=== PATIENT | male | born 1975 | race Caucasian/White ===

== ENCOUNTER 2024-06-21 06:28 | Day surgery (SDC) | payer OTHER, SELFPAY | END 2024-06-21 14:34 | disposition home or self-care (01) | LOC: GI 06:28 | PROVIDERS: ATTENDING PHYSICIAN Internal Medicine | DX: Z12.11 Encounter for screening for malignant neoplasm of colon (principal); K57.30 Diverticulosis of large intestine without perforation or abscess without bleeding; K64.8 Other hemorrhoids; K55.20 Angiodysplasia of colon without hemorrhage; D12.3 Benign neoplasm of transverse colon; D12.5 Benign neoplasm of sigmoid colon; K63.5 Polyp of colon; K62.1 Rectal polyp | CPT/HCPCS: 45385; 45380; 88305 ==

== ENCOUNTER 2024-06-22 21:13 | Inpatient (IN) | payer OTHER, SELFPAY ==
[2024-06-22 17:40] VITALS: BP 167/110
[2024-06-22 17:54] LABS: % Basophils 0.7 % (0-2); % Eosinophils 2.7 % (0-6); % Immature Granulocytes 0.5 % (0-0.5); % Lymphocytes 33.3 % (20.5-51.1); % Monocytes 9.9 % (1.7-9.3); % Neutrophils 52.9 % (42.2-75.2); Absolute Eosinophils 0.2 10^3/uL (0-0.7); Absolute Lymphocytes 1.9 10^3/uL (1.2-3.4); Absolute Monocytes 0.6 10^3/uL (0.1-0.6); Absolute Neutrophils 3.1 10^3/uL (1.4-6.5); Hematocrit 39.2 % (39.0-52.0); Hemoglobin 13.7 g/dL (13.0-18.0); Mean Corp Hgb Conc. 34.9 g/dL (33.0-37.0); Mean Corpuscular Hgb 30.6 pg (27.0-31.0); Mean Corpuscular Volume 87.5 fL (80.0-94.0); Mean Platelet Volume 9.3 fL (7.4-10.4); Nucleated Red Blood Cells % 0 % (-); Platelet Count 300 10^3/uL (130-400); Red Blood Cell Count 4.48 10^6/uL (4.70-6.10); Red Cell Dist. Width 12.9 % (11.5-14.5); White Blood Cell Count 5.8 10^3/uL (4.8-10.8)
[2024-06-22 18:10] LABS: ALT (SGPT) 23 U/L (0-50); AST (SGOT) 27 U/L (17-59); Albumin 4.9 g/dl (3.5-5.0); Alkaline Phosphatase 64 U/L (38-126); Blood Urea Nitrogen 12 mg/dl (9-20); Calcium 9.3 mg/dl (8.4-10.2); Carbon Dioxide 22 mmol/L (22-30); Chloride 103 mmol/L (98-107); Glucose 104 mg/dl (70-99); Potassium 3.9 mmol/L (3.5-5.1); Sodium 138 mmol/L (135-145); Total Bilirubin 0.5 mg/dl (0.2-1.3); Total Protein 7.6 g/dl (6.3-8.2); eGFR > 60.00
--- NOTE | 2024-06-22 19:15 | ED.GENMED ---
History of Present Illness
General
Chief Complaint: Rectal Bleeding
Source: patient
Exam Limitations: none
Time Seen by Provider: 06/22/24 19:08
History of Present Illness
History of Present Illness:
See MDM
Past History
Past History
ED Past Medical History: None
ED Past Surgical History: None
Social History
Tobacco: Non-smoker
Alcohol: None
Phy Exam
Physical Exam
Physical Exam:
See MDM
Course
Orders/Labs/Results
Orders:
Orders
06/22/24 17:48
Complete Blood Count/With Diff Urgent
Comprehensive Metabolic Panel Urgent
06/22/24 19:50
Tranexamic Acid 1000 mg/100 ml [Tranexamic Acid] 1,000 mg in 100 ml IV ONCE
06/22/24 19:55
Type+Screen Urgent
Consult Gastroenterology [GASTROINTESTINAL CONSULT] Routine
Consulting Provider: Rhina Guy
Was physician already notified: Yes
0.9% Sodium Chloride 1000 ml [Nss] 1,000 ml IV BOLUS
Abnormal Lab Results
06/22/24
17:48
RBC 4.48 L 10^6/uL
(4.70-6.10)
Monocytes % 9.9 H %
(1.7-9.3)
Glucose 104 H mg/dl
(70-99)
06/22/24 17:48
06/22/24 17:48
Vital Signs
Initial and Last Documented VS:
Initial Vital Signs
Temp Pulse Resp BP Pulse Ox
98.6 F 101 16 167/110 98
06/22/24 17:40 06/22/24 17:40 06/22/24 17:40 06/22/24 17:40 06/22/24 17:40
Last Documented Vital Signs
Temp Pulse Resp BP Pulse Ox
98.6 F 101 16 167/110 98
06/22/24 17:40 06/22/24 17:40 06/22/24 17:40 06/22/24 17:40 06/22/24 17:40
MDM/Problems Addressed
Differential Diagnosis Includes:
HPI and MDM Narrative:
49-year-old male presenting for evaluation of rectal bleeding. Patient had a colonoscopy yesterday. He states about 8 polyps removed. He states 2 of the polyps were about 25 mm requiring delisa after removal. After the procedure, patient had 3
episodes of bright red rectal bleeding. When he woke up, he continued to have rectal bleeding but with large clots. He had about 8 episodes of rectal bleeding today. He denies any passage of stool but that is expected since he just finished a
bowel prep. He denies any significant past medical history and denies being on blood thinners. On exam, abdomen is soft and nontender. Hemoglobin stable. Will discuss case with GI
Physical exam
General: Well appearing and non-toxic
HEENT: protecting airway
Neck: appears supple
CV: No evidence of cyanosis
Resp: No accessory muscle use
Abd: Non-distended. Soft and nontender
Extremities: No deformities
Neuro: alert
Psych: Normal affect
Skin: Intact
Problems Addressed including Acute and Chronic Conditions affecting care:
1. Post polypectomy rectal bleeding
Acuity: acute
Prognosis: stable
Details: Hemoglobin stable. Patient not on blood thinners. Will discuss case with GI
Updates
Given the multiple episodes of rectal bleeding, case discussed with GI. Will start TXA and admit for hemoglobin trending and evaluation
Differential Diagnosis (but not limited to): Polypectomy bleed, diverticulosis
Testing considered: CT abdomen/pelvis but he has no abdominal pain
Drug therapy (if applicable): OTC meds, please see d/c instruction regarding Rx drugs
Amount and/or Complexity of Data Reviewed
Clinical info obtained from: Patient
External data reviewed: N/A
Labs I independently reviewed (but not limited to): Hemoglobin stable
Radiology: N/A
Pulse Ox: not hypoxic
EKG independently reviewed: N/A
Door Closer: N/A
Critical Care: N/A
Risk of Complication:
Social Determinants of health: Good social support
Discussed with other providers: Gastroenterology, hospitalist
Escalation of Care includes Admit/Obs: Given persistent rectal bleeding, will admit for hemoglobin trending
Occasional wrong word or 'sound a like' substitutions may have occurred due to the inherent limitations of voice recognition software. Read the chart carefully and recognize, using context, where substitutions have occurred.
*Critical Care Note
Total Time (30-74mins, 75-104mins- exclusive of procedures): Not Applicable
ED Attending Note
-
Portions of this chart may have been created with voice recognition software.� Occasional wrong word or��sound alike� substitutions may have occurred due to the inherent limitations of voice recognition software.
Discharge Plan
Departure
Patient Disposition: Admit
Date of Disposition: 06/22/24
Time of Disposition: 19:58
Admit to: Med/Surg
Presentation/result/management discussed w/ accepting MD/DO: Hospitalist
Discharge Problem:
Bright red rectal bleeding
Referrals:
Bobbi Joe CRNP [Family Provider] -
Interventions
Interventions:
*Risk Screen - Suicide Last Done: 06/22/24 17:40
*Neglect/Abuse Screening Last Done: 06/22/24 17:40
Discharge Date and Time
Print Language: BURUNDIAN
[2024-06-22] MEDS: TRANEXAMIC ACID 100 IV (20:14)
[2024-06-22] MEDS: NSS 1000 IV (20:15)
[2024-06-22 20:18] VITALS: BP 146/101
--- NOTE | 2024-06-22 20:19 | HPS.HSE ---
Family Physician
-
Family Physician: SIRISHA Camejo
Chief Complaint
-
Rectal bleeding
History of Present Illness
This is a 49-year-old male who has no known segment past medical history except for hypertension presents to the emergency department with rectal bleeding 1 day after status post colonoscopy with multiple large polyp resections.
Patient denies any history of NSAID use. He denies any thinners. Is status post procedure around 2 PM yesterday. Since then he has been passing clots. Reported he did have dinner and breakfast. He had multiple episodes of bloody bowel movements
today. He shows multiple episodes of passing clots and commode. He has had 3 episodes of rectal bleeding last night and 8 episodes today with large clots. He is not having any stool. He denies feeling dizzy or lightheaded. He denies having any
chest pain. He denies any shortness of breath. He denies any syncopal episode. He reports mild left upper quadrant abdominal discomfort.
In the emergency department he was afebrile, blood pressure was 160/110 with a pulse of 101, he was satting 98% on room air.
Hemoglobin was 13.7 with normal platelet count. Electrolytes BUN/creatinine were all in the normal range.
ED consulted Dr. Guy who is aware.
Tranexamic acid given.
Medical History
Past Medical History
Past Medical History: Reports HTN
Past Surgical History: Reports None
Social History
Tobacco: Non-smoker
Alcohol: Occasional
Drug: None
Living: With Family
Employment: Employed
Family History
Family History: Early CAD (father with CAD)
Allergies / Home Medications
Allergies reflects when Allergies were last updated in [employer].
Home Medications with original date entered in [employer]
Allergy/Medication List:
Allergies
Allergy/AdvReac Type Severity Reaction Status Date / Time
No Known Allergies Allergy Verified 06/22/24 17:44
Home Medications
lisinopril 20 mg tablet 20 mg PO DAILY 06/22/24
Review of Systems
-
History Source: Patient
Constitutional: Reports No Symptoms
EENT: Reports No Symptoms
Respiratory: Reports No Symptoms
Cardiac: Reports No Symptoms
Abdomen/GI: Reports Bloody Stools
: Reports No Symptoms
Musculoskeletal: Reports No Symptoms
Skin: Reports No Symptoms
Neurological: Reports No Symptoms
Endocrine: Reports No Symptoms
Hematologic/Lymphatic: Reports No Symptoms
Psych: Reports No Symptoms
Physical Exam
Vital Signs
Vital Signs
Temp Pulse Resp BP Pulse Ox
98.6 F 101 16 167/110 98
06/22/24 17:40 06/22/24 17:40 06/22/24 17:40 06/22/24 17:40 06/22/24 17:40
Physical Exam
General: Well Developed, Well Nourished, No Apparent Distress and Comfortable
HEENT: NormoCephalic, Anicteric, Moist mucous membranes and Atraumatic
Respiratory: Clear
Cardiac: S1/S2 and Regular Rhythm
Breast: Deferred by me
GI: Soft, Non Tender, Non Distended and Normal Bowel Sounds
Rectal: Red
Genito-urinary: Deferred by me
Musculoskeletal: No Clubbing, No Cyanosis and No Edema
Skin: Warm
Neuro: AO x 3 and Nonfocal/grossly intact
Hematologic/Lymphatic: No Lymphadenopathy
Psych: Calm
Laboratory Results
-
06/22/24 17:48
06/22/24 17:48
Laboratory Results
Total Bilirubin 0.5 mg/dl (0.2-1.3) 06/22/24 17:48
AST 27 U/L (17-59) 06/22/24 17:48
ALT 23 U/L (0-50) 06/22/24 17:48
Alkaline Phosphatase 64 U/L (38-126) 06/22/24 17:48
Data Reviewed
-
Lab Data: Labs Reviewed by me
Old Records: Reviewed
Impression/Plan
-
IMPRESSION:
49 y.o male POD 1 s/p colonoscopy with resection of 8 polyps with 2 large ones requiring delisa comes in with BRBPR and passing clots since the procedure. Hgb is still stable so far. Hemodynamically remains stable with SBP 167. hgb 13.7 (no
priors).
PLAN:
Rectal bleeding 2/2 polyp resection - HD stable, Hgb stable. Still passing clots x 24 hours. No thinners. No other known risk factors.
- admit to telemetry
- NPO for now except sips and ice chips
- type and screen and consented
- GI aware and consulted
- given TXA in ED
- H&H q 6 hours for now
- holding lisinopril
- if significant drop or HD compromise will obtain CT GI bleeding protocol
DVT PPX- SCDs
Code status - Full Code
[2024-06-22 21:03] VITALS: BMI 26.2
[2024-06-22 22:00] VITALS: BP 146/92
[2024-06-22 22:33] VITALS: BP 129/95; BP 134/82; BP 136/83; PULSE 105; PULSE 61; PULSE 72; BMI 25.3
[2024-06-22] MEDS: D5/0.45%NACL 1000 IV (22:49)
--- NOTE | 2024-06-22 22:50 | PTCARENOTE ---
Received pt. from ED via stretcher and pt. able to walk to room bed with steady gait. Denies dizziness while standing, denies pain, no nausea, even and unlabored breathing on RA, and VSS. Oriented pt. to room and hospital policies, discussed plan of
care and what to expect, and addressed questions/concerns at time of assessment. Bed locked and in lowest position, side rails in place, call light within reach.
[2024-06-23] VITALS (13 sets, daily range): BP systolic 15–169; BP diastolic 68–113; PULSE 53–113
[2024-06-23 00:08] LABS: Hematocrit 31.1 % (39.0-52.0); Hemoglobin 10.8 g/dL (13.0-18.0)
[2024-06-23 04:23] LABS: Hemoglobin 9.9 g/dL (13.0-18.0)
[2024-06-23 04:28] LABS: PT 14.7 Sec (11.4-14.6)
[2024-06-23 04:44] LABS: Blood Urea Nitrogen 13 mg/dl (9-20); Calcium 8.4 mg/dl (8.4-10.2); Carbon Dioxide 24 mmol/L (22-30); Chloride 106 mmol/L (98-107); Estimated Creatinine Clearance 120 ml/min; Glucose 118 mg/dl (70-99); Potassium 4.1 mmol/L (3.5-5.1); Sodium 136 mmol/L (135-145); eGFR > 60.00
--- NOTE | 2024-06-23 08:12 | CON.GI ---
Addendum entered and electronically signed by Rhina Arreola Do, MD 06/23/24 12:17:
I saw and examined the patient.
The VICE PRESIDENT AND PORTFOLIO MANAGER's note was reviewed and I agree with the note.
Comment: Demarcus is a 49yo M with h/o HTN who had recent screening colonoscopy 06/21 with 8 polyps requiring complex polypectomies and cecal AVM. Yesterday with several episodes of hematochezia. Hbg from 13 to 9.9. Received TXA in ER. Vitals stable
abdomen soft, NTTP, NABS. Mentating. Prior [facility] records reviewed
Suspect post polypectomy bleeding. Colonoscopy today after rapid prep with copious maroon and black clots. Unable to visualize. Pt hospitalist updated. Transfer him from GI lab to radiology for urgent CTA. Hopefully embolization if site found
clips should be near those areas. C/w NPO. Will follow with you
Original Note:
Consultation
-
Date/Time Consultation Requested: 06/22/241954
Date/Time Consultation Performed: 06/23/24 0750
Requesting Provider: Dr. Martinez
Performing Provider: Dr. Guy/SIRISHA Gudino
Reason for Consultation: rectal bleeding
Medical History
Chief Complaint / HPI
Chief Complaint: rectal bleeding
History of Present Illness:
49-year-old male with past history of hypertension and colon polyps who had colonoscopy on 06/21/2024 presents to the emergency room with bright red blood per rectum. Asked to evaluate for the same. Patient had colonoscopy performed on 06/21/2024.
The patient had 8 polyps removed he also was found to have a cecal AVM that was nonbleeding. The patient went home and approximately 6 hours later he had an episode of bright red blood per rectum in the toilet. Later in the evening he had another
episode this 1 was mixed with some sediment of stool. He had a third episode in the middle of the night that was complete clot. At that point he came to the emergency room for further evaluation. We are asked to evaluate for the same. He then
started passing multiple episodes of blood every hour. He never had any abdominal pain just urgency to have a bowel movement which was blood per rectum. He was given TXA in the emergency room. Since that time he only passed 1 small clot per
rectum. He is passing flatus. Otherwise he denies any fevers, chills, nausea, vomiting, melena, dysphagia or dyne aphasia. No early satiety or unintentional weight loss. He does not smoke. He drinks on the weekends. Sometimes he states he can
range anywhere from 2 beers to 12 beers. His only medication is lisinopril. He does not take any aspirin or NSAIDs. He does not have any known coagulation disorders. His only surgery was wisdom tooth extraction. Hemoglobin on presentation was
13.7. This morning it is 9.9. Platelets 300. Patient denies any chest pain, shortness of breath, dizziness or diaphoresis. PT 14.7 this morning, INR was 1.10. Patient had no imaging.
Past Medical History
Past Medical History: HTN and Other (8 colon polyps, nonbleeding cecal AVM)
Past Surgical History: Other ([place] teeth extraction)
Social History
Tobacco: Non-Smoker
Alcohol: Occasional (Drinks on weekends 2-12 beers)
Drug: None
Living: With Family
Employment: Employed
Family History
Family History: Other (No family history of gastrointestinal malignancy or IBD)
Allergies / Home Medications
Allergy/AdvReac Type Severity Reaction Status Date / Time
No Known Allergies Allergy Verified 06/22/24 17:44
�Medication �Instructions �Recorded
lisinopril 20 mg tablet 20 mg PO DAILY Blood Pressure 06/22/24
Review of Systems
-
All other systems: A 12 pt ROS was Negative except as stated above in HPI
Vital Signs
Temp Pulse Resp BP Pulse Ox
98.2 F 57 16 109/68 98
06/23/24 03:11 06/23/24 04:12 06/23/24 03:11 06/23/24 04:12 06/23/24 03:11
Physical Exam
Exam
General: No Apparent Distress
HEENT: Anicteric
Respiratory: Clear
Cardiac: Regular Rhythm
GI: Soft, Non Tender, Non Distended and Normal Bowel Sounds
Musculoskeletal: No Edema
Skin: Warm and Dry
Neuro: AO x 3
Psych: Calm
Results
WBC 5.8 10^3/uL (4.8-10.8) 06/22/24 17:48
Hgb 9.9 g/dL (13.0-18.0) L 06/23/24 04:03
Hct 29.0 % (39.0-52.0) L 06/23/24 04:03
MCV 87.5 fL (80.0-94.0) 06/22/24 17:48
Plt Count 300 10^3/uL (130-400) 06/22/24 17:48
Absolute Neuts (auto) 3.1 10^3/uL (1.4-6.5) 06/22/24 17:48
PT 14.7 Sec (11.4-14.6) H 06/23/24 04:03
INR 1.10 06/23/24 04:03
Sodium 136 mmol/L (135-145) 06/23/24 04:03
Potassium 4.1 mmol/L (3.5-5.1) 06/23/24 04:03
Chloride 106 mmol/L (98-107) 06/23/24 04:03
Carbon Dioxide 24 mmol/L (22-30) 06/23/24 04:03
BUN 13 mg/dl (9-20) 06/23/24 04:03
Creatinine 0.8 mg/dL (0.7-1.3) 06/23/24 04:03
Calcium 8.4 mg/dl (8.4-10.2) 06/23/24 04:03
Total Bilirubin 0.5 mg/dl (0.2-1.3) 06/22/24 17:48
AST 27 U/L (17-59) 04/10/25 17:48
ALT 23 U/L (0-50) 06/22/24 17:48
Alkaline Phosphatase 64 U/L (38-126) 06/22/24 17:48
Diagnostic Image Results:
None
Prior GI Procedures:
EGD: None
Colonoscopy: 06/21/2024: - A single non-bleeding colonic angioectasia.
- One diminutive polyp in the ascending colon, removed
with a cold biopsy forceps. Resected and retrieved.
- One small polyp in the ascending colon, removed with
a cold snare. Resected and retrieved.
- Three 3 to 6 mm polyps in the transverse colon,
removed with a cold snare. Complete resection. Partial
retrieval.
- One small polyp in the descending colon, removed
with a cold snare. Resected and retrieved.
- One small polyp in the sigmoid colon, removed with a
cold snare. Resected and retrieved. Clips were placed.
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
- One 25 mm polyp in the distal sigmoid colon, removed
with a hot snare. Resected and retrieved. Clips were
placed. Injected.
- Diverticulosis in the sigmoid colon.
- Non-bleeding internal hemorrhoids.
Assessment / Plan
-
49-year-old male with past history of hypertension and colon polyps who had colonoscopy on 06/21/2024 presents to the emergency room with bright red blood per rectum. Asked to evaluate for the same. Patient had colonoscopy performed on 06/21/2024.
The patient had 8 polyps removed he also was found to have a cecal AVM that was nonbleeding. The patient went home and approximately 6 hours later he had an episode of bright red blood per rectum in the toilet. Later in the evening he had another
episode this 1 was mixed with some sediment of stool. He had a third episode in the middle of the night that was complete clot. At that point he came to the emergency room for further evaluation. We are asked to evaluate for the same. Patient
passing multiple episodes of bright red blood per rectum every hour. Patient was given TXA in the emergency room with cessation of bleeding. Hemoglobin went from 13.7 down to 9.8.
COLO 06/21/24: - A single non-bleeding colonic angioectasia.
- One diminutive polyp in the ascending colon, removed
with a cold biopsy forceps. Resected and retrieved.
- One small polyp in the ascending colon, removed with
a cold snare. Resected and retrieved.
- Three 3 to 6 mm polyps in the transverse colon,
removed with a cold snare. Complete resection. Partial
retrieval.
- One small polyp in the descending colon, removed
with a cold snare. Resected and retrieved.
- One small polyp in the sigmoid colon, removed with a
cold snare. Resected and retrieved. Clips were placed.
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
- One 25 mm polyp in the distal sigmoid colon, removed
with a hot snare. Resected and retrieved. Clips were
placed. Injected.
- Diverticulosis in the sigmoid colon.
- Non-bleeding internal hemorrhoids
Impression:
Rectal bleeding secondary to post polypectomy bleed (2 polypectomies required clips. 1 of these required epinephrine as well)
Plan:
- Will plan for repeat colonoscopy today, in later afternoon. Patient agreeable.
- Patient will be given bottle of magnesium citrate now, discussed with RN. To have completed by 9:30 AM�10 AM.
- Keep n.p.o.
- Trend labs
- Further recommendations to be forthcoming.
-
-
Thank you for consultation and allowing me to participate in the patient's care. Please call the plant control aide GI physician during the after hours with any questions or concerns.
[2024-06-23] MEDS: CITROMA 300 ML PO (08:25)
--- NOTE | 2024-06-23 11:39 | PTCARENOTE ---
Assumed care of patient and got done report from previous RN. Patient was taken down to colonoscopy procedure at time of report. RN introduced self to patient before he left for procedure.
--- NOTE | 2024-06-23 15:50 | W.PN.HOSP.TC ---
Addendum entered and electronically signed by Meenu Castaneda MD 06/23/24 17:12:
I saw and evaluated the patient independently. I reviewed the resident�s note and agree with findings and plan as documented by Dr. Iverson.
GENERAL: well developed, well nourished, male in no apparent distress
HEENT: NC/AT
HEART: regular rate and rhythm, +S1, +S2
LUNGS : clear to auscultation bilaterally
ABDOM: soft, nontender, nondistended, + bowel sounds
EXT: no cyanosis, clubbing, or edema
NEUROLOGIC: grossly intact
Bright red blood per rectum s/p polyp removal from colonoscopy 06/21/24--Hemodynamically stable--HGB drop from 13.9 to 9.9--transfuse if less that 7 or symptomatic--s/p TXA in ED--colonoscopy today showed poor prep and blood--sent for CTA, no active
bleeding--clear liquids, NPO after MN--repeat colonoscopy tomorrow
acute blood loss anemia--from GI bleed as above--Check H&H every 6 hours
Essential hypertension--Hold lisinopril
code status--Full code
DVT proph
Original Note:
Today's Communication/Plan
-
Repeat colonoscopy tomorrow
Monitor H&H
Clear liquid diet
N.p.o. after midnight
Assessment / Plan
Assessment / Plan
Impression
Bright red blood per rectum s/p polyp removal on 06/21
Anemia due to acute blood loss from the procedure
Essential hypertension
Plan
Bright red blood per rectum s/p polyp removal
Hemodynamically stable
Hemoglobin now 9.9
Tranexamic acid was given in the ED
No more rectal bleeding since except for a small clot
GI following, patient had colonoscopy this noon
Due to black and maroon-colored blood and clots in the entire colon, urgent CTA was done
Repeat colonoscopy tomorrow
Started on clear liquid diet.
NPO after midnight.
Anemia due to acute blood loss
Check H&H every 6 hours
Monitor HB closely
Essential hypertension
Hold lisinopril
Monitor blood pressure
Full code
Clear liquid diet
SCD
Anticipated Discharge: 24 - 48 hours
Subjective/Interval History
-
Date of Service: June 23, 2024
No overnight events
Objective Data
-
Labs:
Laboratory Results
06/23/24
04:03
Hgb 9.9 L
Hct 29.0 L
PT 14.7 H
INR 1.10
Sodium 136
Potassium 4.1
Chloride 106
Carbon Dioxide 24
BUN 13
Creatinine 0.8
Glucose 118 H
Calcium 8.4
Vital Signs:
Vital Signs
Temp Pulse Resp BP Pulse Ox
97.3 F 59 16 142/92 99
06/23/24 12:15 06/23/24 12:30 06/23/24 12:30 06/23/24 12:30 06/23/24 12:30
I&O
06/22/24 06/23/24 06/24/24
06:59 06:59 06:59
Intake Total 600 / 600
Balance 600 / 600
Review of Systems
-
All other systems: Reviewed and negative
Physical Exam
-
General: Comfortable
HEENT: Normocephalic and Atraumatic
Respiratory: Clear to Auscultation
Cardiac: Regular Rhythm and S1/S2
GI: Soft, Nontender and Nondistended
Musculoskeletal: No Edema
Neuro: AO x 3
Psych: Other (Angry/frustrated)
Data Reviewed
-
Labs: Labs Reviewed by me and Discussed with Physician
[2024-06-23] MEDS: D5/0.45%NACL 1000 IV (16:09)
[2024-06-23] MEDS: DULCOLAX 10 MG PO (16:11)
[2024-06-23] MEDS: NULYTELY SOLUTION 4 LITERS PO (16:13)
--- NOTE | 2024-06-23 16:20 | CM ---
Patient seen at bedside, Patient lives alone in a one story ranch home. Patient uses the [facility] and Patient PCP is Dr. Joe. Patient states that he plans to go home with no needs anticipated at discharge. Patient has no DME no VN prior to
admission. Patient indicated that he is working. CM will continue to follow for discharge planning needs.
Plan; home with no needs anticipated.
[2024-06-23 17:42] LABS: Hematocrit 31.7 % (39.0-52.0)
[2024-06-23] MEDS: THIAMINE INJECTION IV (18:25)
[2024-06-23] MEDS: ATIVAN 0.25 MG IV (18:30)
[2024-06-23] MEDS: NSS (PRESERVATIVE FREE) 0.125 ML IV (18:33)
--- NOTE | 2024-06-23 22:00 | PTCARENOTE ---
Pt completed colon prep, bowel movements have been appearing blood tinged @ this time, clearing from previous BM at beginning of shift.
[2024-06-23 22:13] LABS: Hematocrit 33.1 % (39.0-52.0); Hemoglobin 11.5 g/dL (13.0-18.0)
[2024-06-23] MEDS: FOLVITE 1 MG PO (22:17)
[2024-06-24 03:05] VITALS: BP 121/81
--- NOTE | 2024-06-24 04:06 | PTCARENOTE ---
pt reports last BM was bloody like previous day.
[2024-06-24 04:18] LABS: Hematocrit 28.7 % (39.0-52.0); Hemoglobin 9.9 g/dL (13.0-18.0)
--- NOTE | 2024-06-24 06:28 | PTCARENOTE ---
pt reports no further BM since 299.
[2024-06-24] MEDS: FOLVITE 1 MG PO (08:54)
[2024-06-24] MEDS: THERAGRAN 1 TABLET PO (08:54)
[2024-06-24 08:55] VITALS: BP 142/95
[2024-06-24] MEDS: THIAMINE INJECTION 100 MG IV (08:55)
--- NOTE | 2024-06-24 09:47 | PTCARENOTE ---
notified doctors pt wishes to leave before 1200 via TT group text. [id number] pt left AMA. Advised Dr. Castaneda in ICU and will be here shortly, did not wish to wait. Advised pt of continued S/S of GI bleed, monitor HG with PCP if note any bleeding, soft
diet today with decreased fiber for bowel rest and then can continue with a regular diet. removed 2 AC IV and tele. pt left to call an [employer]. notified MD of status
--- NOTE | 2024-06-24 11:14 | W.PN.UPDATE ---
Update Note
Progress Note Update
Left AGAINST MEDICAL ADVICE prior to my arriving at the bedside to discuss this with him. He has already signed the paperwork.
--- NOTE | 2024-06-24 14:33 | W.DCSUMMARY ---
Discharge Summary
Discharge Data
Date of Admission: 06/22/24
Date of Discharge: 06/24/24
-
Pending Results: No
Hospital Course
Primary care physician : Bobbi Joe
Principal Discharge diagnosis : Bright red blood per rectum status post polypectomy removal from colonoscopy June 21, 2024, acute blood loss anemia
Chronic Discharge diagnosis : Essential hypertension
Hospital Course : Patient is a 49-year-old male who had colonoscopy on June 21 with removal of multiple large polyps. Since his procedure, he states that he has been passing clots. He had dinner and breakfast but had multiple episodes of bloody
bowel movements on the day of admission. He denied any episodes of dizziness or lightheadedness. He states he has had 3 episodes of rectal bleeding the night prior to admission and 8 episodes on the day of admission with large clots. Hemoglobin
on admission was 13.7 and patient was hemodynamically stable. He was admitted.
Problem #1: Bright red blood per rectum status post polypectomy removal from colonoscopy June 21, 2024/Acute blood loss anemia. Patient's hemoglobin on admission was 13.7 which dropped to a low of 9.9. He had no active bleeding here in the
hospital. He did have a colonoscopy which showed poor prep and dark blood noted, and patient was sent for CT angiogram. That was negative for acute bleeding. Patient was then prepped for colonoscopy which she had today. Which showed nonbleeding
internal hemorrhoids, most multiple post polypectomy ulceration in the sigmoid colon seen with prior hemoclips were intact. Patient was recommended to have a regular diet and then observe today to evaluate for any further bleeding. Patient did not
want to stay in the hospital and signed out AGAINST MEDICAL ADVICE as mentioned.
Problem #2: Disposition. Patient left the hospital AGAINST MEDICAL ADVICE. He signed the paperwork before I arrived at the patient bedside.
Important imaging findings :
CT ANGIOGRAPHY IMPRESSION:
No CTA evidence for active gastrointestinal bleeding
Sigmoid diverticulosis
No acute CT abnormalities in abdomen/pelvis
4 mm left lower lobe pulmonary nodule. If the patient has elevated risk of lung cancer, follow-up chest CT in one year would be recommended
Procedure findings :
first colonoscopy Impression- Preparation of the colon was poor.
- Non-bleeding internal hemorrhoids.
- Black and maroon colored blood and clots in the
entire examined colon. This precludes visualization.
- No specimens collected.
second colonoscopy -- Preparation of the colon was fair.
- Non-bleeding internal hemorrhoids.
- The examination was otherwise normal.
- Mucosal post polypectomy ulceration in the ascending
colon. Clip (MR conditional) was placed. 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
carbon cutter: [employer].
- Multiple post polypectomy ulceration in the sigmoid
colon seen with prior hemoclips intact. Clips (MR
conditional) were placed. Clip carbon cutter: [employer].
- No specimens collected.
Discharge Plan
-
Patient Disposition: Against Medical Advice
Referrals:
Bobbi Joe CRNP [Family Provider] -
Prescriptions:
No Action
lisinopril 20 mg Tablet
20 mg PO DAILY
Discharge Date and Time
Discharge Date/Time: 06/24/24 09:38
Print Language: YAKUT
== END 2024-06-24 09:38 | disposition left against medical advice (07) | DRG 920 ==
LOC: 2 SOUTH 21:13
PROVIDERS: Emergency Medicine; Student in an Organized Health Care Education/Training Program; ADMITTING PHYSICIAN Internal Medicine; ATTENDING PHYSICIAN Internal Medicine; CONSULT PHYSICIAN Internal Medicine Gastroenterology; EMERGENCY PHYSICIAN Student in an Organized Health Care Education/Training Program; FAMILY PHYSICIAN Nurse Practitioner Family
PROC: 0DJD8ZZ Inspection of Lower Intestinal Tract, Via Natural or Artificial Opening Endoscopic (ICD-10-PCS; 2024-06-23)
PROC: 0W3P8ZZ Control Bleeding in Gastrointestinal Tract, Via Natural or Artificial Opening Endoscopic (ICD-10-PCS; 2024-06-24)
DX: K91.840 Postprocedural hemorrhage of a digestive system organ or structure following a digestive system procedure (principal); D62 Acute posthemorrhagic anemia; K63.3 Ulcer of intestine; Y83.8 Other surgical procedures as the cause of abnormal reaction of the patient, or of later complication, without mention of misadventure at the time of the procedure; I10 Essential (primary) hypertension; K64.8 Other hemorrhoids; K57.30 Diverticulosis of large intestine without perforation or abscess without bleeding; Z82.49 Family history of ischemic heart disease and other diseases of the circulatory system; Z53.29 Procedure and treatment not carried out because of patient's decision for other reasons; Z86.0100 Personal history of colon polyps, unspecified
CPT/HCPCS: 74174; 80048; 80053; 85014; 85018; 85025; 85610; 86850; 86900; 86901; 96361; 96374; 99285; Q9967